=== PATIENT | female | born 1940 | race Caucasian/White ===

== ENCOUNTER → 2022-01-10 08:52 | Outpatient (CLI) | payer OTHER, SELFPAY ==
[2022-01-10 11:10] LABS: Blood Urea Nitrogen 49 mg/dL (7-17); Chloride 89 mmol/L (98-107); Estimated Glomerular Filt Rate 37 mL/min (>60); Potassium 3.8 mmol/L (3.4-5.1); Sodium 140 mmol/L (137-145)
[2022-01-10 13:41] LABS: Carbon Dioxide 39 mmol/L (22-32); HEMOLYSIS < 15 (0-50)
[2022-01-10 13:46] LABS: NT-proBNP (BNP-Adult 18+) 1350 pg/mL (<450)
== END ==
DX: I50.30 Unspecified diastolic (congestive) heart failure (principal)
CPT/HCPCS: 36415; 80051; 82565; 83880; 84520